=== PATIENT | female | born 1950 | race Caucasian/White ===

== ENCOUNTER 2017-04-29 14:52 | Emergency (ER) | payer OTHER ==
[2017-04-29 15:01] VITALS: PULSE 104; RESP 16; TEMP 98.2; O2SAT 96
[2017-04-29] MEDS ORDERED: NS 500 ML IV ONE (15:05)
--- NOTE | 2017-04-29 15:10 | CPEKG ---
Heart Rate: 91 RR Interval: 659 P-R Interval: 140 QRSD Interval: 84 QT Interval: 368 QTC Interval: 453 P [place]: 43 QRS [place]: 2 T Wave [place]: 95 EKG Severity - NORMAL ECG - EKG Impression: SINUS RHYTHM Electronically Signed By: Donato Vasquez 29-Apr-2017 20:35:31
--- NOTE | 2017-04-29 15:25 | EDPHY ---
HPI/HX/ROS/PE/MDM Narrative: CHIEF COMPLAINT: Chest tightness HPI: The patient is a 67 y/o female arriving with her family member complaining of chest tightness with exertion for the last couple days. She has a history of asthma, reflux, and a recent ablation 6 weeks ago for atrial flutter. Since the procedure, she's noticed an elevated pulse with exertion. This normally resolves when she rests. She arrived in [place] a week ago for vacation and has continued to noticed an elevated heart rate with even mild exertion. Over the past few days she began developing associated chest tightness that she describes as "burning and soreness" with dyspnea. She reports having a full cardiac work up at the time of the ablation and has no signs of CAD. She denies history of NM, hypertension, hyperlipidemia. No associated leg swelling, weakness, syncope. REVIEW OF SYSTEMS: Aside from elements discussed in the HPI, a comprehensive 10-point review of systems was reviewed and is negative. PMH: ablation 6 weeks ago for atrial flutter - Diltazem, asthma, carotid endarterectomy, "silent" reflux SOCIAL HISTORY: Family member at bedside, lives in [place], arrived in [place] one week ago PHYSICAL EXAM: General:Patient is alert, in no acute distress. ENT:Eyes are normal to inspection. ENT inspection normal. Neck: Normal inspection. Full range of motion. Respiratory:No respiratory distress. Breath sounds normal bilaterally. Cardiovascular: Regular rate and rhythm. Strong peripheral pulses. Normal cap refill. Abdomen:The abdomen is nontender to palpation. There are no peritoneal signs. Back: Normal to inspection. No tenderness to palpation. Skin: Normal color. No rash. Warm and dry. Extremities: Normal appearance. Full range of motion. Neuro: Oriented x3. Normal motor function. Normal sensory function. ED Course: IV established. Labs drawn including CBC, CHEM, troponin. Patient placed on farmworker general. Chest x-ray ordered. The 12 lead EKG was interpreted by myself. Sinus rhythm rate 91. See hard copy and/or "tracemaster" electronic copy for interpretation. 1647: Reassessed patient and discussed work up. Her EKG, chest x-ray, and labs are all normal. She is currently asymptomatic and feels ready to go home. I offered her admission to the hospital for cardiology consultation but she declines. She understands I am unable to fully rule out potentially serious etioogy of her chest pain here in the ED. Standard chest pain follow up and return precautions given. She is comfortable with this plan. - Data Points Imaging Results: Imaging Impressions Chest X-Ray 04/29/17 15:05 Impression: Minimal linear atelectasis left base. Otherwise normal. Imaging: I viewed and interpreted images myself Laboratory Results: Laboratory Results 04/29/17 15:50 04/29/17 15:50 04/29/17 04/29/17 04/29/17 15:50 15:50 15:50 WBC 7.36 10^3/uL 10^3/uL (3.80-9.50) RBC 4.83 10^6/uL 10^6/uL (4.18-5.33) Hgb 14.1 g/dL g/dL (12.6-16.3) Hct 43.1 % % (38.0-47.0) MCV 89.2 fL fL (81.5-99.8) MCH 29.2 pg pg (27.9-34.1) MCHC 32.7 g/dL g/dL (32.4-36.7) RDW 13.7 % % (11.5-15.2) Plt Count 256 10^3/uL 10^3/uL (150-400) MPV 9.5 fL fL (8.7-11.7) Neut % (Auto) 57.1 % % (39.3-74.2) Lymph % (Auto) 28.1 % % (15.0-45.0) [place] % (Auto) 10.6 % % (4.5-13.0) Eos % (Auto) 3.3 % % (0.6-7.6) Baso % (Auto) 0.5 % % (0.3-1.7) Nucleat RBC Rel Count 0.0 % % (0.0-0.2) Absolute Neuts (auto) 4.20 10^3/uL 10^3/uL (1.70-6.50) Absolute Lymphs (auto) 2.07 10^3/uL 10^3/uL (1.00-3.00) Absolute Monos (auto) 0.78 10^3/uL 10^3/uL (0.30-0.80) Absolute Eos (auto) 0.24 10^3/uL 10^3/uL (0.03-0.40) Absolute Basos (auto) 0.04 10^3/uL 10^3/uL (0.02-0.10) Absolute Nucleated RBC 0.00 10^3/uL 10^3/uL (0-0.01) Immature Gran % 0.4 % % (0.0-1.1) Immature Gran # 0.03 10^3/uL 10^3/uL (0.00-0.10) D-Dimer 0.44 ug/mLFEU ug/mLFEU (0.00-0.50) Sodium 142 mEq/L mEq/L (134-144) Potassium 3.9 mEq/L mEq/L (3.5-5.2) Chloride 104 mEq/L mEq/L (97-110) Carbon Dioxide 27 mEq/l mEq/l (22-31) Anion Gap 11 mEq/L mEq/L (8-16) BUN 14 mg/dL mg/dL (7-23) Creatinine 0.9 mg/dL mg/dL (0.6-1.0) Estimated GFR > 60 Glucose 108 mg/dL H mg/dL (70-100) Calcium 9.5 mg/dL mg/dL (8.5-10.4) Troponin I Not Reported Medications Given: Discontinued Medications Sodium Chloride (Ns) 500 mls @ 0 mls/hr IV EDNOW ONE; Wide Open PRN Reason: Protocol Stop: 04/29/17 15:06 Last Admin: 04/29/17 15:19 Dose: Not Given General Time Seen by Provider: 04/29/17 15:05 Initial Vital Signs: Initial Vital Signs Temperature (C) 36.8 C 04/29/17 14:59 Heart Rate 104 H 04/29/17 14:59 Respiratory Rate 16 04/29/17 14:59 O2 Sat (%) 96 04/29/17 14:59 O2 Delivery Mode Room Air Allergies/Adverse Reactions: Cephalosporins Allergy (Verified 04/29/17 14:57) ciprofloxacin [From Cipro] Allergy (Verified 04/29/17 14:57) ciprofloxacin HCl [From Cipro] Allergy (Verified 04/29/17 14:57) latex Allergy (Verified 04/29/17 14:57) nitrofurantoin [From Macrobid] Allergy (Verified 04/29/17 14:57) Home Medications: Medication Instructions Recorded Ambien Cr 01/31/15 Diltiazem 04/29/17 Eliquis 04/29/17 Probiotic 04/29/17 Zantac 04/29/17 Departure - Departure Disposition: Home, Routine, Self-Care Clinical Impression: Chest pain, Dyspnea, Chest pain on exertion Condition: Good Instructions: Chest Pain (ED), Dyspnea (ED) Additional Instructions: 1. Follow up with your health navigator upon your return home for further evaluation. 2. Go to the nearest ED if you develop any worsening of symptoms. Referrals: SANDRAOTTERVALERIANO,UNKNOWN [Other] - As per Instructions Report Scribed for: Grey De La Rosa Report Scribed by: Jada Phillips Date of Report: 04/29/17 Time of Report: 15:25 Physician Review and Approval Statement: Portions of this note were transcribed by an ED scribe. I personally performed the history, physical exam, and medical decision making; and confirm the accuracy of the information in the transcribed note.
[2017-04-29 16:00] LABS: % IMMATURE GRANULYOCYTES 0.4 % (0.0-1.1); ABSOLUTE IMMATURE GRANULOCYTES 0.03 10^3/uL (0.00-0.10); ADD DIFF? NO; ADD MORPH? NO; ADD SCAN? NO; ATYPICAL LYMPHOCYTE FLAG 0 (0-99); FRAGMENT RBC FLAG 0 (0-99); HEMATOCRIT 43.1 % (38.0-47.0); HEMOGLOBIN 14.1 g/dL (12.6-16.3); LEFT SHIFT FLG 0 (0-99); LIPEMIA HEMOLYSIS FLAG 80 (0-99); MEAN CELL HEMOGLOBIN 29.2 pg (27.9-34.1); MEAN CELL HEMOGLOBIN CONCENTR. 32.7 g/dL (32.4-36.7); MEAN CELL VOLUME 89.2 fL (81.5-99.8); MEAN PLATELET VOLUME 9.5 fL (8.7-11.7); PLATELET CLUMPS FLAG 0 (0-99); PLATELET COUNT 256 10^3/uL (150-400); RED BLOOD CELL COUNT 4.83 10^6/uL (4.18-5.33); RED CELL DISTRIBUTION WIDTH 13.7 % (11.5-15.2)
[2017-04-29 16:19] LABS: ANION GAP 11 mEq/L (8-16); CALCIUM 9.5 mg/dL (8.5-10.4); CARBON DIOXIDE 27 mEq/l (22-31); CHLORIDE 104 mEq/L (97-110); CREATININE 0.9 mg/dL (0.6-1.0); GLOMERULAR FILTRATION RATE > 60; GLUCOSE 108 mg/dL (70-100); POTASSIUM 3.9 mEq/L (3.5-5.2); SODIUM 142 mEq/L (134-144)
== END 2017-04-29 16:57 | disposition home or self-care (01) ==
DX: R07.1 Chest pain on breathing (principal); R06.00 Dyspnea, unspecified; J45.909 Unspecified asthma, uncomplicated; Z79.01 Long term (current) use of anticoagulants; Z91.040 Latex allergy status